=== PATIENT | female | born 1955 | race Caucasian/White ===

== ENCOUNTER 2018-10-26 14:39 | Outpatient (CLI) | payer OTHER ==
[2018-10-26 18:27] LABS: THYROID STIMULATING HORMONE 2.82 uIU/mL (0.34-5.60)
[2018-10-26 18:31] LABS: FREE T4 (FREE THYROXINE) 0.81 ng/dL (0.58-1.64)
== END 2018-10-26 14:40 | disposition home or self-care (01) ==
LOC: LAB.F 14:39
PROVIDERS: ATTEND Naturopath
DX: Z13.29 Encounter for screening for other suspected endocrine disorder (principal)
CPT/HCPCS: 36415; 81599; 83519; 84439; 84443; 84445; 84481; 84482; 86376; 86800